=== PATIENT | female | born 1945 | race Caucasian/White ===

== ENCOUNTER 2024-03-26 16:30 | Emergency (ER) | payer OTHER, SELFPAY ==
[2024-03-26 16:35] VITALS: BP 141/80
[2024-03-26 16:36] VITALS: BP 141/80; BMI 44.9
--- NOTE | 2024-03-26 16:42 | ED.GENMED ---
History of Present Illness
General
Chief Complaint: Abnormal Lab Value
Source: patient
Exam Limitations: none
Time Seen by Provider: 03/26/24 16:33
History of Present Illness
History of Present Illness:
See MDM
Past History
Past History
ED Past Medical History: Other (Peripheral neuropathy, Patient denies any history and states she is not taking any medication)
ED Past Surgical History: Other (Tubal ligation)
Social History
Tobacco: Non-smoker
Alcohol: None
Personal:
Living: alone
Phy Exam
Physical Exam
Physical Exam:
See MDM
Course
Orders/Labs/Results
Orders:
Orders
03/26/24 16:33
EKG [Electrocardiogram (*1)] Urgent
Reason for Study: Abdominal Pain
03/26/24 16:35
EKG- Treatment ONCE
03/26/24 16:36
0.9% Sodium Chloride 1000 ml [Nss] 1,000 ml IV BOLUS
Ketorolac [Toradol] 30 mg IV NOW STA
Ondansetron Injectable [Zofran] 4 mg IV NOW STA
03/26/24 16:37
CT Abd/pelvis W Iv Cont Urgent
Comment:
Reason For Exam: N/V, fever, left abd pain
03/26/24 16:49
COVID-19 Antigen Urgent
Source: Nasal Swab
Complete Blood Count/With Diff Urgent
Comprehensive Metabolic Panel Urgent
Lipase Urgent
Influenza A+B Rapid Molecular Urgent
YOLETTE Source: Nasal Swab
Specimen Description:
03/26/24 17:14
UA Reflex to Culture [Urinalysis Reflex To Culture] Urgent
Date Specimen was Collected: 03/26/24
Time Specimen was Collected: 17:13
Urine Microscopic Reflex Cult Urgent
Urine Culture Urgent
YOLETTE Source: U
Specimen Description:
Date Specimen was Collected: 03/26/24
Time Specimen was Collected: 17:13
03/26/24 20:07
Ciprofloxacin HCl [Cipro] 500 mg PO ONCE ONE
Abnormal Lab Results
03/26/24 03/26/24
16:49 17:14
RBC 4.04 L 10^6/uL
(4.20-5.40)
Hgb 10.3 L g/dL
(12.0-16.0)
Hct 32.1 L %
(37.0-47.0)
MCV 79.5 L fL
(81.0-99.0)
MCH 25.5 L pg
(27.0-31.0)
MCHC 32.1 L g/dL
(33.0-37.0)
RDW 15.4 H %
(11.5-14.5)
Abs Immat Gran (auto) 0.1 H 10^3/uL
(0-0.05)
Absolute Neuts (auto) 7.5 H 10^3/uL
(1.4-6.5)
Absolute Lymphs (auto) 1.0 L 10^3/uL
(1.2-3.4)
Absolute Monos (auto) 0.7 H 10^3/uL
(0.1-0.6)
Neutrophils % 80.7 H %
(42.2-75.2)
Lymphocytes % 10.6 L %
(20.5-51.1)
Chloride 93 L mmol/L
(98-107)
Carbon Dioxide 32 H mmol/L
(22-30)
Glucose 118 H mg/dl
(70-99)
Alkaline Phosphatase 131 H U/L
(38-126)
Ur Occult Blood Reflex 1+ A
(Negative)
Leukocyte Esterase Rfl 2+ A
(Negative)
Urine RBC 3-6 A /HPF
(0-2)
Urine WBC (Reflex) >100 A /HPF
(0-5)
Urine Bacteria (Reflex) Moderate A
(Negative)
03/26/24 16:49
03/26/24 16:49
Vital Signs
Initial and Last Documented VS:
Initial Vital Signs
Resp
39
03/26/24 16:33
Last Documented Vital Signs
Temp Pulse Resp BP Pulse Ox
101.4 F H 94 19 117/58 94
03/26/24 16:36 03/26/24 18:05 03/26/24 18:05 03/26/24 18:05 03/26/24 17:15
MDM/Problems Addressed
Differential Diagnosis Includes:
HPI and MDM Narrative:
78-year-old female presenting with nausea, vomiting, fever and abdominal pain. Patient states the pain was localized to her left abdomen but seem to have resolved. Patient complains of dehydration and headache.
On exam, she does have dry mucous membranes. Will give IV fluids. Will give Toradol for pain and Zofran for nausea. Given age and complaint, will obtain CT abdomen/pelvis and screening EKG
Physical exam
General: Weak, fatigued, elevated BMI
HEENT: protecting airway. Dry mucous membranes
Neck: supple
CV: No evidence of cyanosis. Regular rate and rhythm
Resp: No accessory muscle use
Abd: Non-distended. No significant abdominal tenderness noted
Extremities: No deformities
Neuro: alert
Psych: Normal affect
Skin: Intact
Problems Addressed including Acute and Chronic Conditions affecting care:
1. Nausea and vomiting
Acuity: acute
Prognosis: stable
Details: Will give Zofran and IV. Given age and complaint, will obtain screening EKG
2. Abdominal pain
Acuity: acute
Prognosis: stable
Details: Will give Toradol and obtain CT abdomen/pelvis
Updates
Given the urinalysis and fever and flank pain, I discussed the concern for pyelonephritis. On multiple reassessments, patient appears better and continues to states she wants to go home. Patient does understand risks of going home. I did suggest
admission. Will start ciprofloxacin and discharge
Differential Diagnosis (but not limited to): Viral gastroenteritis, ACS, pancreatitis, colitis
Testing considered: Chest x-ray but she denies cough or shortness of breath
Drug therapy (if applicable): OTC meds, please see d/c instruction regarding Rx drugs
Amount and/or Complexity of Data Reviewed
Clinical info obtained from: Patient
External data reviewed: N/A
Labs I independently reviewed (but not limited to): Urinalysis
Radiology: The CT scan was personally and independently reviewed. In addition, official CT report reviewed.
Pulse Ox: not hypoxic
EKG independently reviewed: N/A
Promotions Director: N/A
Critical Care: N/A
Risk of Complication:
Social Determinants of health: Good social support
Discussed with other providers: N/A
Escalation of Care includes Admit/Obs: After being observed in the Emergency Department, pt stable for discharge.
Occasional wrong word or 'sound a like' substitutions may have occurred due to the inherent limitations of voice recognition software. Read the chart carefully and recognize, using context, where substitutions have occurred.
*Critical Care Note
Total Time (30-74mins, 75-104mins- exclusive of procedures): Not Applicable
ED Attending Note
-
Portions of this chart may have been created with voice recognition software.� Occasional wrong word or��sound alike� substitutions may have occurred due to the inherent limitations of voice recognition software.
Discharge Plan
Departure
Patient Disposition: Home (Routine Discharge)
Date of Disposition: 03/26/24
Time of Disposition: 20:08
Patient with high blood pressure during this ER visit?: No
Discharge Problem:
Acute pyelonephritis
Instructions: Urinary Tract Infection, Adult ED
Prescriptions:
New
ciprofloxacin HCl 500 mg Tablet
500 mg PO BID Qty: 14 0RF
No Action
atorvastatin 40 MG tablet
40 mg PO QPM
famotidine 20 mg Tablet
20 mg PO DAILY Qty: 0
ropinirole 2 MG tablet
2 mg PO HS
acetaminophen 325 mg Tablet
650 mg PO DAILY
acetaminophen 325 mg Tablet
650 mg PO Q4HPRN PRN (Reason: temp>100F)
acetaminophen 325 mg Tablet
650 mg PO Q6HPRN PRN (Reason: mild pain)
acetaminophen 650 mg Suppository
650 mg DE Q4HPRN PRN (Reason: mild pain/temp>100F)
magnesium hydroxide [Milk of Magnesia] 400 mg/5 mL Suspension
30 ml PO HSPRN PRN (Reason: if no bm in 3 days)
bisacodyl [Dulcolax (bisacodyl)] 10 mg Suppository
10 mg DE DAILYPRN PRN (Reason: if no results for MOM)
sertraline 25 mg tablet
25 mg PO DAILY
Rx Instructions:
take w/ 50mg = 75mg
sertraline 50 mg tablet
50 mg PO DAILY
Rx Instructions:
take w/ 25mg = 75mg
melatonin 5 mg Tablet
5 mg PO HS
gabapentin 100 mg capsule
100 mg PO HS
Referrals:
Noe Moncada MD [Family Provider] -
Activity Restrictions/Additional Instructions:
Please return for any worsening symptoms.
You may return at any time if you have further concerns.
Please follow up with your doctor at the first available appointment, preferably this week.
Thank you for choosing [facility].
Interventions
Interventions:
*Risk Screen - Suicide Last Done: 03/26/24 16:36
*General Assessment Last Done: 03/26/24 16:36
*Neglect/Abuse Screening Last Done: 03/26/24 16:36
ED- Fall Risk Assessment Last Done: 03/26/24 16:44
*ED COVID-19 Vaccine History Last Done: 03/26/24 16:36
Discharge Date and Time
Print Language: [place]ORE[place]
[2024-03-26] MEDS: ZOFRAN 4 MG IV (16:58)
[2024-03-26] MEDS: NSS 1000 IV (16:58)
[2024-03-26 16:59] LABS: % Basophils 0.4 % (0-2); % Eosinophils 0.6 % (0-6); % Immature Granulocytes 0.5 % (0-0.5); % Lymphocytes 10.6 % (20.5-51.1); % Monocytes 7.2 % (1.7-9.3); % Neutrophils 80.7 % (42.2-75.2); Absolute Eosinophils 0.1 10^3/uL (0-0.7); Absolute Immature Granulocytes 0.1 10^3/uL (0-0.05); Absolute Monocytes 0.7 10^3/uL (0.1-0.6); Absolute Neutrophils 7.5 10^3/uL (1.4-6.5); Hematocrit 32.1 % (37.0-47.0); Hemoglobin 10.3 g/dL (12.0-16.0); Mean Corp Hgb Conc. 32.1 g/dL (33.0-37.0); Mean Corpuscular Hgb 25.5 pg (27.0-31.0); Mean Corpuscular Volume 79.5 fL (81.0-99.0); Mean Platelet Volume 9.7 fL (7.4-10.4); Nucleated Red Blood Cells % 0 %; Platelet Count 383 10^3/uL (130-400); Red Blood Cell Count 4.04 10^6/uL (4.20-5.40); Red Cell Dist. Width 15.4 % (11.5-14.5); White Blood Cell Count 9.3 10^3/uL (4.8-10.8)
[2024-03-26 17:00] VITALS: BP 115/54
[2024-03-26] MEDS: TORADOL 30 MG IV (17:00)
[2024-03-26 17:13] LABS: ALT (SGPT) 12 U/L (0-35); AST (SGOT) 17 U/L (14-36); Albumin 3.8 g/dl (3.5-5.0); Alkaline Phosphatase 131 U/L (38-126); Blood Urea Nitrogen 16 mg/dl (7-17); Calcium 8.8 mg/dl (8.4-10.2); Carbon Dioxide 32 mmol/L (22-30); Chloride 93 mmol/L (98-107); Estimated Creatinine Clearance 90 ml/min; Glucose 118 mg/dl (70-99); Lipase 51 U/L (23-300); Potassium 4.6 mmol/L (3.5-5.1); Sodium 135 mmol/L (135-145); Total Bilirubin 0.5 mg/dl (0.2-1.3); Total Protein 7.1 g/dl (6.3-8.2); eGFR > 60.00
[2024-03-26 17:22] LABS: COVID-19 Antigen Negative (Negative)
[2024-03-26 17:30] LABS: Urine Albumin Trace (Neg - Trace); Urine Bilirubin Negative (Negative); Urine Character Slightly Cloudy (Clear); Urine Color Yellow; Urine Glucose Negative (Negative); Urine Ketone Negative (Negative); Urine Leukocyte 2+ (Negative); Urine Nitrite Negative (Negative); Urine Occult Blood 1+ (Negative); Urine Specific Gravity 1.005 (<1.030); Urine Urobilinogen Negative (Neg - 1+)
[2024-03-26 17:53] LABS: Urine Bacteria Moderate (Negative); Urine White Cell >100 /HPF (0-5)
[2024-03-26 18:05] VITALS: BP 117/58
[2024-03-26 21:08] VITALS: BP 100/54
[2024-03-26] MEDS: CIPRO 500 MG PO (21:14)
[2024-03-26 22:00] VITALS: BP 98/47
[2024-03-27] VITALS: BP 97/64
== END 2024-03-27 01:11 ==
LOC: EMR 16:30
PROVIDERS: EMERGENCY PHYSICIAN Student in an Organized Health Care Education/Training Program; FAMILY PHYSICIAN Internal Medicine
DX: N10 Acute pyelonephritis (principal); R11.2 Nausea with vomiting, unspecified
CPT/HCPCS: 96374; 96375; 96361; 99284; 74177; 80053; 81003; 81015; 83690; 85025; 87077; 87086; 87186; 87502; 87811; 93005; Q9967